=== PATIENT | female | born 1955 | race Caucasian/White ===

== ENCOUNTER 2020-02-13 18:54 | Emergency (ER) | payer MEDICARE ==
[2020-02-13 19:02] VITALS: RESP 18
--- NOTE | 2020-02-13 19:16 | ED ---
Fall HPI - General Chief Complaint: Fall Stated Complaint: Fall, head injury Time Seen by Provider: 02/13/20 19:02 Source: patient, EMS Mode of arrival: EMS - History of Present Illness Initial Comments: 64-year-old female patient presents to the emergency department today for evaluation after sustaining a head injury. 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 Patient states she did feel days for a moment, nearly passed out but did not. She states that she has a large lump on the back of her head. She denies any headache but states that the area is locally tender. She denies any blurred vision, double vision, nausea, or vomiting. States she is having neck soreness to the front and back of her neck. She denies any extremity injury. Denies any back pain or injury. Denies any use of anticoagulant or antiplatelet medications. Patient denies any chest pain, shortness of breath, dizziness, weakness, abdominal pain, or difficulties with bowel movements or urination. - Related Data Allergies Allergy/AdvReac Type Severity Reaction Status Date / Time Sulfa (Sulfonamide Allergy Nausea & Verified 02/13/20 19:01 Antibiotics) Vomiting Review of Systems ROS Statement: Those systems with pertinent positive or pertinent negative responses have been documented in the HPI. ROS Other: All systems not noted in ROS Statement are negative. Past Medical History Past Medical History: Hypertension History of Any Multi-Drug Resistant Organisms: None Reported Additional Past Surgical History / Comment(s): bilateral shoulder surgery Past Psychological History: No Psychological Hx Reported Smoking Status: Never smoker Past Alcohol Use History: None Reported Past Drug Use History: None Reported General Exam Limitations: no limitations General appearance: alert, in no apparent distress, other (This is a well- developed, well-nourished adult female patient in no acute distress. Vital signs upon presentation are temperature 98.6F, pulse 77, respirations 18, blood pressure 145/87, pulse ox 97% on room air.) ENT exam: Present: normal exam, normal oropharynx, mucous membranes moist Neck exam: Present: normal inspection, full ROM, other (No bony step-off, bony deformity or tenderness noted to firm midline palpation of the posterior cervical spine. ). Absent: tenderness, meningismus, lymphadenopathy Respiratory exam: Present: normal lung sounds bilaterally. Absent: respiratory distress, wheezes, rales, rhonchi, stridor Cardiovascular Exam: Present: regular rate, normal rhythm, normal heart sounds. Absent: systolic murmur, diastolic murmur, rubs, gallop, clicks GI/Abdominal exam: Present: soft, normal bowel sounds. Absent: distended, tenderness, guarding, rebound, rigid Neurological exam: Present: alert, oriented X3, CN II-XII intact Psychiatric exam: Present: normal affect, normal mood Skin exam: Present: warm, dry, intact, normal color. Absent: rash Course Vital Signs 02/13/20 18:56 Temperature 98.6 F Pulse Rate 77 Respiratory 18 Rate Blood Pressure 145/87 O2 Sat by Pulse 97 Oximetry Medical Decision Making - Medical Decision Making 64-year-old female patient presents to the emergency department today for evaluation after experiencing a slip and fall accident with head injury. Physical examination did reveal a hematoma to the right posterior scalp. There is no cervical spinal tenderness, bony step-off, or deformity noted. CT brain and C-spine was negative. Upon reevaluation patient is resting comfortably in bed. She is neurologically intact. She'll be discharged follow up with her primary care physician for recheck in 1-2 days. Return parameters were discussed in detail. She verbalizes understanding and agrees with this plan. - Radiology Data Radiology results: report reviewed, image reviewed CT brain and C-spine without contrast was obtained. Report is reviewed in its entirety. Impression by Dr. Garcia shows multilevel cervical spine facet arthropathy. Mild spondylotic changes lower cervical spine. No cervical spine fracture. Occipital scalp hematoma. No acute intracranial abnormality. Disposition Clinical Impression: Head injury, Scalp hematoma, Cervical strain Disposition: HOME SELF-CARE Condition: Good Instructions (If sedation given, give patient instructions): Cervical Strain (ED), Head Injury (ED), Hematoma (ED) Additional Instructions: Continue to apply ice to the hematoma/head swelling. Take tylenol and motrin for pain control. Follow-up with your primary care physician for recheck in 1-2 days. Return to the emergency department immediately for any new, worsening, or concerning symptoms. Is patient prescribed a controlled substance at d/c from ED?: No Referrals: Nonstaff,Physician [Primary Care Provider] - 1-2 days Time of Disposition: 20:16
[2020-02-13] MEDS ORDERED: LORazepam 2 MG/ML INJ IV STA (19:41)
--- NOTE | 2020-02-13 19:51 | CT ---
EXAMINATION TYPE: CT brain jacobo mejia DATE OF EXAM: 02/13/2020 COMPARISON: None HISTORY: fall with blow to back of head Headache. Neck pain CT DLP: 1488.3 mGycm Automated exposure control for dose reduction was used. Ventricles and sulci appear normal. There is no mass effect nor midline shift. There is no sign of in tracranial hemorrhage. There is right occipital scalp hematoma. The calvarium is intact. There is nor mal aeration of the temporal bones. Skull base is intact. Cervical vertebra have normal alignment. There is mild narrowing and spurring at C5-6 and C6-7. Facet joints are intact. Prevertebral soft tissues are intact. IMPRESSION: Multilevel cervical facet arthropathy. Mild spondylotic change in the lower cervical spine. No cervic al spine fracture. Occipital scalp hematoma. No acute intracranial abnormality.
[2020-02-13 20:32] VITALS: BP 126/74; PULSE 85; TEMP 98.2
== END 2020-02-13 20:35 | disposition home or self-care (01) ==
LOC: EC 18:54
DX: S16.1XXA Strain of muscle, fascia and tendon at neck level, initial encounter (principal); S00.03XA Contusion of scalp, initial encounter; Z88.2 Allergy status to sulfonamides; W01.198A Fall on same level from slipping, tripping and stumbling with subsequent striking against other object, initial encounter; Y93.89 Activity, other specified; Y92.89 Other specified places as the place of occurrence of the external cause
CPT/HCPCS: 72125; 70450; 99284; 96374; J2060